=== PATIENT | male | born 1990 ===

== ENCOUNTER 2017-05-17 20:03 | Emergency (ER) | payer BC ==
[2017-05-17 20:08] VITALS: BP 135/89
[2017-05-17] MEDS ORDERED: Amoxicillin PO (*) 250 MG CAP PO ONE (21:27)
[2017-05-17] MEDS ORDERED: Amoxicillin PO (*) 500 MG CAP PO ONE (21:27)
--- NOTE | 2017-05-17 21:30 | UC ---
Throat Pain/Nasal Jhonatan HPI - HPI Summary HPI Summary: 26 YO MALE WITH THE ONSET OF SINUS PRESSURE AND PAIN X 3 WEEKS BILAT EAR PRESSURE SOME DIZZINESS NOW WITH FEVER AND MALAISE X 1 DAY - History of Current Complaint Chief Complaint: UCRespiratory Stated Complaint: SINUS Time Seen by Provider: 05/17/17 21:22 Hx Obtained From: Patient Onset/Duration: Gradual Onset, Lasting Weeks Severity: Moderate Pain Intensity: 4 Pain Scale Used: 0-10 Numeric Associated Signs & Symptoms: Positive: Sinus Discomfort, Nasal Discharge, Fever - Allergies/Home Medications Allergies/Adverse Reactions: Allergies Allergy/AdvReac Type Severity Reaction Status Date / Time No Known Allergies Allergy Verified 05/17/17 20:08 PMH/Surg Hx/FS Hx/Imm Hx Previously Healthy: Yes Respiratory History: Asthma - CHILD - Surgical History Surgical History: None - Family History Known Family History: Positive: Hypertension, Respiratory Disease - Social History Alcohol Use: Occasionally Substance Use Type: None Smoking Status (MU): Never Smoked Tobacco Review of Systems Constitutional: Fever, Chills, Fatigue Skin: Negative Eyes: Negative ENT: Ear Ache, Nasal Discharge, Sinus Congestion Respiratory: Cough Cardiovascular: Negative Gastrointestinal: Negative Genitourinary: Negative Motor: Negative Neurovascular: Negative Musculoskeletal: Negative Neurological: Negative Psychological: Negative Is Patient Immunocompromised?: No All Other Systems Reviewed And Are Negative: Yes Physical Exam Triage Information Reviewed: Yes Appearance: Well-Appearing, No Pain Distress, Well-Nourished Vital Signs: Initial Vital Signs Temp 100.0 F 05/17/17 20:05 Pulse 100 05/17/17 20:05 Resp 18 05/17/17 20:05 BP 135/89 05/17/17 20:05 Pulse Ox 99 05/17/17 20:05 Vital Signs Reviewed: Yes Eyes: Positive: Conjunctiva Clear ENT: Positive: Hearing grossly normal, Nasal congestion, Nasal drainage, TM bulging. Negative: Tonsillar swelling, Tonsillar exudate, Trismus, Muffled/ hoarse voice Neck: Positive: Supple, Nontender, No Lymphadenopathy Respiratory: Positive: Lungs clear, Normal breath sounds, No respiratory distress, No accessory muscle use Cardiovascular: Positive: RRR, No Murmur Musculoskeletal: Positive: ROM Intact, No Edema Neurological: Positive: Alert Psychological Exam: Normal Skin Exam: Normal Diagnostics - Laboratory Diagnostic Studies Completed/Ordered: PULSE OX :99 % RA COMMENT: NORMAL/NOT HYPOXIC Throat Pain/Nasal Course/Dx - Differential Dx/Diagnosis Provider Diagnoses: ACUTE SINUSITIS. BILATERAL SEROUS OTITIS MEDIA Discharge - Discharge Plan Condition: Stable Disposition: HOME Prescriptions: Amoxicillin PO (*) [Amoxicillin 875 MG (*)] 875 mg PO BID #20 tab Patient Education Materials: Sinusitis (ED) Referrals: Non Staff,Doctor [Primary Care Provider] - Additional Instructions: warm facial compresses saline nasal spray twice daily RECHECK FOR NEW OR WORSENING SYMPTOMS RECHECK IN 5-7 DAYS IF NOT BETTER
== END 2017-05-17 21:49 | disposition home or self-care (01) ==
LOC: UCEAST 20:03
DX: J01.90 Acute sinusitis, unspecified (principal); H65.93 Unspecified nonsuppurative otitis media, bilateral; J45.909 Unspecified asthma, uncomplicated
CPT/HCPCS: 99202; A9270-GY; G0463